=== PATIENT | male | born 1990 | race Caucasian/White ===

== ENCOUNTER 2021-03-12 19:03 | Emergency (ER) | payer BC, SELFPAY ==
[2021-03-12 19:18] VITALS: BP 130/67; PULSE 100; RESP 20; TEMP 38.3; O2SAT 100
--- NOTE | 2021-03-12 20:14 | ED.GENADULT ---
HPI - General Adult General Chief complaint: Upper Respiratory Infection Stated complaint: aches fever Source: patient Mode of arrival: ambulatory Limitations: no limitations History of Present Illness HPI narrative: Patient presents for evaluation of sick symptoms which started today. Patient reports headache, very mild sore throat, left-sided otalgia, very mild nonproductive cough, generalized body aches, fever, and chills. He had nausea earlier today but that resolved. He denies any vomiting or diarrhea. He has been taking ibuprofen for his symptoms. No history of COVID. He has been vaccinated for COVID. He is concerned he has COVID. No recent sick contacts to his knowledge. No additional complaints or concerns. Review of Systems Review of Systems: CONSTITUTIONAL: Reports fever and chills. EYES: Denies visual changes, redness, or discharge. ENT: Sore throat and left-sided otalgia. Denies rhinorrhea, congestion CARDIOVASCULAR: Denies chest pain, palpitations, or edema. RESPIRATORY: Reports cough. Denies shortness of breath. GASTROINTESTINAL: Reports nausea earlier, now resolved. Denies abdominal pain, vomiting, or diarrhea. GENITOURINARY: Denies dysuria or hematuria. SKIN: Denies rash or itching. MUSCULOSKELETAL: Ports generalized body NEUROLOGIC: Reports headache. Denies numbness, dizziness, or weakness. PSYCHIATRIC: Denies anxiety or depression. ON LICENSE OF [facility] Past Medical History Medical History (Updated 03/12/21 @ 20:20 by Colton Rivera, [facility], ) No pertinent past medical history Surgical History Surgical History No pertinent past surgical history Family History Family History Mother No pertinent family history Social History Social History Smoking status: Never smoker Alcohol intake: current Alcohol use details: Social Substance use type: marijuana Other substance usage details: Occasional Gender identity (if verbalized by the patient): Male Spiritual care concerns: No Exam Narrative: GENERAL: Well-appearing, well-nourished, and in no acute distress. HEAD: Normocephalic, atraumatic. EYES: PERRLA and EOMI. ENT: Nares clear, no rhinorrhea or epistaxis. Mucous membranes moist. Oropharynx without tonsillar hypertrophy exudate or other lesions. Bilateral TMs pearly burrell nonbulging NECK: Supple. No adenopathy or masses. No carotid bruits or JVD CHEST: Clear to auscultation. Occasional cough noted. no respiratory distress. No wheezes rales or rhonchi HEART: Regular rate and rhythm. No murmur heard. Normal peripheral pulses. ABDOMEN: Soft, nontender, nondistended, normal active bowel sounds. EXTREMITIES: Normal range of motion. No edema. SKIN: Warm, dry, no rash. NEURO: No focal deficits. Alert and oriented x3. PSYCH: Normal mood and affect. Course Course Emergency Course: This is a 30-year-old male who presents with symptoms consistent with COVID. His COVID was negative. I did offer to perform strep and influenza testing, which she declined. We will send COVID for PCR testing. [id number] agents for symptom management, increase hydration. Follow-up outpatient for further evaluation and treatment return for worsening symptoms. Patient agrees with plan. Level of Care: Express Care Visit Vital Signs Vital signs: Vital Signs Temperature 38.3 C H 03/12/21 19:18 Pulse Rate 100 03/12/21 19:18 Respiratory Rate 20 03/12/21 19:18 Blood Pressure 130/67 03/12/21 19:18 Pulse Oximetry 100 03/12/21 19:18 Temperature 38.3 C H 03/12/21 19:18 Pulse Rate 100 03/12/21 19:18 Respiratory Rate 20 03/12/21 19:18 Blood Pressure 130/67 03/12/21 19:18 Pulse Oximetry 100 03/12/21 19:18 Medical Decision Making Differential Diagnosis Differential Diagnosis: COVID versus strep versus infl
[2021-03-14 21:11] LABS: SARS-CoV-2 RNA PCR Positive
== END 2021-03-12 20:25 | disposition home or self-care (01) ==
PROVIDERS: Emergency Provider Nurse Practitioner
DX: B34.9 Viral infection, unspecified (principal); Z20.822 Contact with and (suspected) exposure to COVID-19
CPT/HCPCS: 87426; 99213; C9803; G0463; U0003; U0005